=== PATIENT | female | born 1995 | race Two or more races ===

== ENCOUNTER 2017-07-27 08:58 | Emergency (ER) | payer OTHER ==
[~2017-07-27] VITALS: Ht 167.6 cm; Wt 95.3 kg
== END 2017-07-27 12:53 | disposition home or self-care (01) ==
LOC: ER 08:58
DX: T16.1XXA Foreign body in right ear, initial encounter (principal); W45.8XXA Other foreign body or object entering through skin, initial encounter; Y93.89 Activity, other specified; Y92.89 Other specified places as the place of occurrence of the external cause; Y99.8 Other external cause status